=== PATIENT | female | born 1995 | race Two or more races ===

== ENCOUNTER 2016-05-23 21:31 | Emergency (ER) | payer MEDICAID ==
[~2016-05-23] VITALS: Ht 162.6 cm; Wt 49.9 kg
[2016-05-23 22:12] LABS: Basophils # (auto) 0.1 uL; Basophils % (auto) 0.5 % (0.0-2.0); Eosinophils # (auto) 0.1 uL; Hematocrit 41.1 % (36.0-46.0); Hemoglobin 13.7 g/dL (12.2-16.2); Lymphocytes # (auto) 3.8 uL; Lymphocytes % (auto) 39.1 % (10.0-50.0); Mean Corpuscular Hemoglobin 28.4 pg (28.0-32.0); Mean Corpuscular Hgb Conc. 33.4 g/dL (32.0-36.0); Mean Corpuscular Volume 85.2 fL (80.0-100.0); Mean Platelet Volume 6.9 fL (7.4-10.4); Monocytes # (auto) 1.4 uL; Monocytes % (auto) 13.8 % (0.0-12.0); Neutrophils # (auto) 4.5 uL; Neutrophils % (auto) 45.6 % (37.0-80.0); Platelet Count (auto) 450 10^3/uL (140-450); Red Cell Distribution Width 14.8 % (11.6-16.0); White Blood Cell 9.8 10^3/uL (4.4-10.8)
[2016-05-23 22:27] LABS: INR 1.11 (0.9-1.15); Partial Thromboplastin Time 26.6 sec (22.64-33.71)
[2016-05-23 22:29] LABS: Calcium 8.7 mg/dL (8.5-10.1); Potassium 3.5 mmol/L (3.5-5.1)
[2016-05-23 23:12] LABS: Urine Bilirubin Negative (Negative); Urine Color Yellow (Yellow); Urine Glucose Normal (Normal); Urine Mucus FEW (None Seen); Urine RBC 13 /hpf (0 - 4); Urine Squamous Epithelial Cell FEW /hpf (<5); Urine Urobilinogen Normal (Negative)
[2016-05-23 23:13] LABS: Urine Blood 2+ /uL (Negative); Urine Ketone 4+ (Negative); Urine Nitrite POSITIVE (Negative)
[2016-05-23] MEDS ORDERED: cefTRIAXone 1GM/50ML D5W 50 ML IV ONE ×2 (23:25→23:30)
[2016-05-23] MEDS ORDERED: SODIUM CHLORIDE 0.9% 1,000 ML IV ONE (23:30)
[2016-05-24 02:00] VITALS: BP 99/46
== END 2016-05-24 02:30 | disposition home or self-care (01) ==
LOC: ER 22:06
DX: N39.0 Urinary tract infection, site not specified (principal); F15.10 Other stimulant abuse, uncomplicated; F12.10 Cannabis abuse, uncomplicated; F17.210 Nicotine dependence, cigarettes, uncomplicated
CPT/HCPCS: 36415; 80053; 80320; 81001; 82962; 84702; 85025; 85610; 85730; 86850; 86900; 86901; 96365; 96366; 99285; G0434; J0696; J7030